=== PATIENT | male | born 1940 | race Caucasian/White ===

== ENCOUNTER 2016-09-04 12:08 | Emergency (ER) | payer MEDICARE ==
[~2016-09-04] VITALS: Ht 175.3 cm; Wt 100.9 kg
[2016-09-04 12:13] VITALS: TEMP 98
[2016-09-04 12:46] LABS: PH 5 (5-8); SQUAMOUS EPITHELIAL 0-2 /hpf; URINE APPEARANCE Hazy; URINE BACTERIA None Seen /hpf; URINE BILIRUBIN Negative (NEGATIVE); URINE BLOOD 1+ (NEGATIVE); URINE COLOR Yellow; URINE GLUCOSE Negative (NEGATIVE); URINE KETONE Negative (NEGATIVE); URINE RBC 0-2 /hpf; URINE UROBILINOGEN Negative (NEGATIVE)
[2016-09-04 12:56] LABS: BASO # 0.1 (0.0-0.2); BASO % 0.5 % (0.0-2.0); EOS # 0.1 (0.0-0.7); EOS % 0.8 % (0-4.0); GRAN # 9.6 (1.4-6.5); GRAN % 73.4 % (42.2-75.2); HEMATOCRIT 36.6 % (42.0-52.0); HEMOGLOBIN 11.9 g/dl (13.5-18.0); LYMPH # 2.1 (1.2-3.4); LYMPH % 15.8 % (20.0-51.0); MEAN CELL VOLUME 88 fl (80.0-100.0); MEAN CORPUSCULAR HEMOGLOBIN 29 pg (27.0-31.0); MEAN CORPUSCULAR HGB CONC 33 g/dl (33.0-37.0); MEAN PLATELET VOLUME 9.2 fl (7.4-10.4); MONO # 1.2 (0.1-0.6); MONO % 8.9 % (1.7-9.3); PLATELET COUNT 158 K/mm3 (130-400); RED BLOOD COUNT 4.16 M/mm3 (4.20-5.60); REDCELL DISTRIBUTION WIDTH-CV 14.4 % (11.5-14.5); WHITE BLOOD COUNT 13.1 K/mm3 (4.8-10.8)
[2016-09-04 13:08] LABS: ADJUSTED CALCIUM 8.9 mg/dL (8.4-10.2); ALANINE AMINOTRANSFERASE 27 U/L (21-72); ALBUMIN 4.3 gm/dL (3.5-5.0); ALKALINE PHOSPHATASE 55 U/L (50-136); ANION GAP 12 mmol/L (7-16); BILIRUBIN,TOTAL 1.3 mg/dL (0.0-1.0); BLOOD UREA NITROGEN 23 mg/dL (9-20); C-REACTIVE PROTEIN 7.1 mg/dL (0.0-0.9); CALCIUM 9.1 mg/dL (8.4-10.2); CARBON DIOXIDE 22 mmol/L (22-30); CHLORIDE 104 mmol/L (98-107); CREATININE, serum 1.75 mg/dL (0.66-1.25); GLUCOSE 126 mg/dL (74-106); LIPASE 80 U/L (23-300); POTASSIUM 4.2 mmol/L (3.4-5.0); SODIUM 138 mmol/L (137-145); TOTAL PROTEIN 8.2 gm/dL (6.4-8.2)
[2016-09-04 13:18] LABS: TROPONIN-I < 0.012 ng/mL (0.000-0.034)
[2016-09-04] MEDS ORDERED: OMNICEF 300MG300 MG PO (14:50)
[2016-09-04] MEDS ORDERED: NORCO 325 MG-51 TAB PO (14:50)
[2016-09-04 14:54] VITALS: BP 116/88; PULSE 82
== END 2016-09-04 15:05 | disposition home or self-care (01) ==
LOC: COL.ER 12:08
PROVIDERS: Emergency Medicine
DX: N39.0 Urinary tract infection, site not specified (principal); N19 Unspecified kidney failure; I25.10 Atherosclerotic heart disease of native coronary artery without angina pectoris; Z86.73 Personal history of transient ischemic attack (TIA), and cerebral infarction without residual deficits; Z86.718 Personal history of other venous thrombosis and embolism
CPT/HCPCS: J0696; J1170; J2405; J7030

== ENCOUNTER 2016-09-06 16:53 | Emergency (ER) | payer MEDICARE ==
[~2016-09-06] VITALS: Ht 175.3 cm; Wt 100.0 kg
[~2016-09-06 16:53] MED LIST: NORCO 325 MG-51 TAB PO; OMNICEF 300MG300 MG PO
[2016-09-06 16:55] VITALS: TEMP 98.9
[2016-09-06 17:33] LABS: BASO % 0.3 % (0.0-2.0); EOS # 0.1 (0.0-0.7); EOS % 1.1 % (0-4.0); GRAN # 8.8 (1.4-6.5); GRAN % 74.6 % (42.2-75.2); HEMATOCRIT 32.2 % (42.0-52.0); HEMOGLOBIN 10.8 g/dl (13.5-18.0); LYMPH # 1.6 (1.2-3.4); LYMPH % 13.6 % (20.0-51.0); MEAN CELL VOLUME 87 fl (80.0-100.0); MEAN CORPUSCULAR HEMOGLOBIN 29 pg (27.0-31.0); MEAN CORPUSCULAR HGB CONC 34 g/dl (33.0-37.0); MEAN PLATELET VOLUME 9.2 fl (7.4-10.4); MONO # 1.2 (0.1-0.6); MONO % 9.8 % (1.7-9.3); PLATELET COUNT 137 K/mm3 (130-400); RED BLOOD COUNT 3.69 M/mm3 (4.20-5.60); REDCELL DISTRIBUTION WIDTH-CV 14.3 % (11.5-14.5); WHITE BLOOD COUNT 11.8 K/mm3 (4.8-10.8)
[2016-09-06 17:43] LABS: ADJUSTED CALCIUM 8.9 mg/dL (8.4-10.2); ALBUMIN 3.9 gm/dL (3.5-5.0); BILIRUBIN,TOTAL 0.9 mg/dL (0.0-1.0); CALCIUM 8.8 mg/dL (8.4-10.2); CREATININE, serum 2.01 mg/dL (0.66-1.25); POTASSIUM 3.9 mmol/L (3.4-5.0); TOTAL PROTEIN 7.6 gm/dL (6.4-8.2)
[2016-09-06 17:56] LABS: C-REACTIVE PROTEIN 15.7 mg/dL (0.0-0.9)
[2016-09-06 17:57] LABS: ERYTHROCYTE SEDIMENTATION RATE 51 mm/hr (0-30)
[2016-09-06 18:06] LABS: PH 5 (5-8); SQUAMOUS EPITHELIAL 0-2 /hpf; URINE APPEARANCE Hazy; URINE BACTERIA None Seen /hpf; URINE BILIRUBIN Negative (NEGATIVE); URINE BLOOD 1+ (NEGATIVE); URINE COLOR Yellow; URINE GLUCOSE 1+ (NEGATIVE); URINE KETONE Trace (NEGATIVE); URINE RBC 0-2 /hpf; URINE UROBILINOGEN Negative (NEGATIVE)
[2016-09-06] MEDS ORDERED: ULTRAM 50MG TAB50 MG PO (19:20)
[2016-09-06] MEDS ORDERED: PERCOCET 325 MG1 TA2 PO (19:20)
[2016-09-06 19:34] VITALS: BP 123/83; PULSE 80
== END 2016-09-06 19:45 | disposition home or self-care (01) ==
LOC: COL.ER 16:53
PROVIDERS: Emergency Medicine
DX: M54.5 Low back pain (principal); N39.0 Urinary tract infection, site not specified; I25.10 Atherosclerotic heart disease of native coronary artery without angina pectoris; Z86.73 Personal history of transient ischemic attack (TIA), and cerebral infarction without residual deficits; Z86.718 Personal history of other venous thrombosis and embolism; H54.41 Blindness, right eye, normal vision left eye; N50.89 Other specified disorders of the male genital organs
CPT/HCPCS: J1170; J1885; J2405; J7030

== ENCOUNTER 2016-09-11 14:06 | Emergency (ER) | payer MEDICARE ==
[~2016-09-11] VITALS: Ht 175.3 cm; Wt 100.0 kg
[~2016-09-11 14:06] MED LIST changes: +PERCOCET 325 MG1 TA2 PO; +ULTRAM 50MG TAB50 MG PO
[2016-09-11 14:09] VITALS: TEMP 97.9
[2016-09-11 15:50] LABS: BASO # 0.1 (0.0-0.2); BASO % 0.6 % (0.0-2.0); EOS # 0.3 (0.0-0.7); EOS % 2.1 % (0-4.0); GRAN # 9.6 (1.4-6.5); GRAN % 79.2 % (42.2-75.2); LYMPH % 8.6 % (20.0-51.0); MEAN CELL VOLUME 87 fl (80.0-100.0); MEAN CORPUSCULAR HGB CONC 33 g/dl (33.0-37.0); MEAN PLATELET VOLUME 9.1 fl (7.4-10.4); MONO % 8.1 % (1.7-9.3); PLATELET COUNT 159 K/mm3 (130-400); WHITE BLOOD COUNT 12.2 K/mm3 (4.8-10.8)
[2016-09-11 15:51] LABS: HEMATOCRIT 30.6 % (42.0-52.0); HEMOGLOBIN 10.1 g/dl (13.5-18.0); MEAN CORPUSCULAR HEMOGLOBIN 29 pg (27.0-31.0)
[2016-09-11 15:57] LABS: INR 1.3 (0.8-3.0); PROTHROMBIN TIME 14.5 SECONDS (9.7-12.8)
[2016-09-11 16:00] LABS: PARTIAL THROMBOPLASTIN TIME 26.3 SECONDS (26.0-37.0)
[2016-09-11 16:02] LABS: ADJUSTED CALCIUM 9.2 mg/dL (8.4-10.2); ALBUMIN 3.6 gm/dL (3.5-5.0); BILIRUBIN,TOTAL 0.9 mg/dL (0.0-1.0); CALCIUM 8.9 mg/dL (8.4-10.2); CREATININE, serum 1.34 mg/dL (0.66-1.25); TOTAL PROTEIN 7.4 gm/dL (6.4-8.2)
[2016-09-11 16:13] LABS: PH 5 (5-8); SQUAMOUS EPITHELIAL 0-2 /hpf; URINE APPEARANCE Clear; URINE BACTERIA None Seen /hpf; URINE BILIRUBIN Negative (NEGATIVE); URINE BLOOD Negative (NEGATIVE); URINE COLOR Yellow; URINE GLUCOSE Negative (NEGATIVE); URINE KETONE Trace (NEGATIVE); URINE RBC 0-2 /hpf; URINE UROBILINOGEN Negative (NEGATIVE); URINE WBC None Seen /hpf
[2016-09-11 16:45] LABS: C-REACTIVE PROTEIN 18.3 mg/dL (0.0-0.9)
[2016-09-11] MEDS ORDERED: XARELTO15 MG PO (17:46)
[2016-09-11] MEDS ORDERED: PERCOCET 325 MG1 TA2 PO (17:46)
[2016-09-11 18:29] VITALS: BP 113/73; PULSE 85
== END 2016-09-11 18:41 | disposition home or self-care (01) ==
LOC: COL.ER 14:06
PROVIDERS: Emergency Medicine
DX: I82.5Z3 Chronic embolism and thrombosis of unspecified deep veins of distal lower extremity, bilateral (principal); Z79.01 Long term (current) use of anticoagulants; I25.10 Atherosclerotic heart disease of native coronary artery without angina pectoris; Z86.73 Personal history of transient ischemic attack (TIA), and cerebral infarction without residual deficits
CPT/HCPCS: J1170; J2405

== ENCOUNTER → 2017-06-27 | Outpatient (CLI) | payer MEDICARE ==
[~2017-06-27] MED LIST changes: +XARELTO15 MG PO
[2017-06-27 13:03] LABS: ARTERIAL BLD GAS O2 SATURATION 96.1 % (92-100); ARTERIAL BLD GAS TCO2 CT 24.7; ARTERIAL BLOOD GAS BASE EXCESS -0.2 (-2-2); ARTERIAL BLOOD GAS HCO3 23.6 meq/L (22-26); ARTERIAL BLOOD GAS PO2 84.2 mmHg (80-100); ARTERIAL BLOOD GAS pH 7.43 (7.35-7.45)
== END ==
LOC: COL.VAS 11:47
PROVIDERS: Emergency Medicine
DX: I35.1 Nonrheumatic aortic (valve) insufficiency (principal); I72.8 Aneurysm of other specified arteries; I25.10 Atherosclerotic heart disease of native coronary artery without angina pectoris

== ENCOUNTER → 2017-07-28 | Outpatient (CLI) | payer MEDICARE | LOC: COL.VAS 13:37 | DX: I08.2 Rheumatic disorders of both aortic and tricuspid valves (principal); I25.2 Old myocardial infarction; I25.10 Atherosclerotic heart disease of native coronary artery without angina pectoris ==

== ENCOUNTER 2018-11-26 08:06 | Observation (INO) | payer MEDICARE ==
[~2018-11-26] VITALS: Ht 177.8 cm; Wt 99.6 kg
[2018-11-26 09:03] LABS: BASO # 0.1 (0.0-0.2); BASO % 0.6 % (0.0-2.0); EOS # 0.1 (0.0-0.7); EOS % 0.8 % (0-4.0); GRAN % 68.8 % (42.2-75.2); HEMATOCRIT 44.4 % (42.0-52.0); HEMOGLOBIN 14.8 g/dl (13.5-18.0); LYMPH # 2.1 (1.2-3.4); LYMPH % 23.8 % (20.0-51.0); MEAN CELL VOLUME 88 fl (80.0-100.0); MEAN CORPUSCULAR HEMOGLOBIN 29 pg (27.0-31.0); MEAN CORPUSCULAR HGB CONC 33 g/dl (33.0-37.0); MEAN PLATELET VOLUME 9.2 fl (7.4-10.4); MONO # 0.5 (0.1-0.6); MONO % 5.5 % (1.7-9.3); PLATELET COUNT 239 K/mm3 (130-400); RED BLOOD COUNT 5.03 M/mm3 (4.20-5.60); REDCELL DISTRIBUTION WIDTH-CV 14.6 % (11.5-14.5)
[2018-11-26 09:14] LABS: ALANINE AMINOTRANSFERASE 10 U/L (21-72); ALBUMIN 4.8 gm/dL (3.5-5.0); ALKALINE PHOSPHATASE 55 U/L (50-136); ANION GAP 14 mmol/L (7-16); AST,SGOT 26 U/L (15-37); BILIRUBIN,TOTAL 0.6 mg/dL (0.0-1.0); BLOOD UREA NITROGEN 20 mg/dL (9-20); CARBON DIOXIDE 22 mmol/L (22-30); CHLORIDE 107 mmol/L (98-107); GLUCOSE 130 mg/dL (74-106); LIPASE 122 U/L (23-300); SODIUM 143 mmol/L (137-145)
[2018-11-26 09:19] LABS: C-REACTIVE PROTEIN < 0.5 mg/dL (0.0-0.9)
[2018-11-26 09:24] LABS: TROPONIN-I < 0.012 ng/mL (0.000-0.035)
[2018-11-26 09:42] LABS: PROTHROMBIN TIME 11.6 SECONDS (9.7-12.8)
[2018-11-26 09:44] LABS: PARTIAL THROMBOPLASTIN TIME 33.7 SECONDS (26.0-37.0)
[2018-11-26 11:55] LABS: ACETAMINOPHEN < 10 ug/mL (10-30); ALCOHOL(ethanol),MEDICAL < 10 mg/dL; SALICYLATE < 1.0 mg/dL
[2018-11-26 12:22] LABS: COLLECTION METHOD CLEAN CATCH
[2018-11-26 12:30] LABS: MUCOUS Present /lpf; PH 6 (5-8); SQUAMOUS EPITHELIAL 0-2 /hpf; URINE APPEARANCE Clear; URINE BACTERIA None Seen /hpf; URINE BILIRUBIN Negative (NEGATIVE); URINE BLOOD Negative (NEGATIVE); URINE COLOR Yellow; URINE GLUCOSE Negative (NEGATIVE); URINE KETONE Negative (NEGATIVE); URINE LEUKOCYTE ESTERASE Negative (NEGATIVE); URINE NITRATE Negative (NEGATIVE); URINE PROTEIN(semi-quant) 1+ (NEGATIVE); URINE RBC 0-2 /hpf; URINE UROBILINOGEN Negative (NEGATIVE)
[2018-11-26 12:59] LABS: TRICYCLIC ANTIDEPRESS URINE NEGATIVE
--- NOTE | 2018-11-26 16:40 | NUR ---
PATIENT ADMITED INTO ROOM 313 FROM ER WITH VERTIGO. PATIENT DENIES C/O DIZZINESS AT THIS TIME. PATIENT DID ANSWER YES TO SOME OF THE SUICIDE ADMISSION QUESTIONS IN ER. NAT EVALUATED PATIENT AND CLEARED HIM. PATIENT IS NON-COMPLIENT WITH PCP. NO CURRENT MEDICATIONS. PATIENT REPORTS HIS PAST MEDICAL HX HOWEVER, THIS HAS NOT BEEN CONFIRMED. PATIENT SEEMS TO EXAGGERATE MOST TOPICS INCLUDING HIS HEALTH HX. HEAD TO TOE ASSESSMENT WNL. LEFT AC IV INFUSING NS AT 125CC PER ORDERS. HEAD TO TOE ASSESSMENT COMPLETE.
[2018-11-26 17:13] VITALS: BP 160/80; PULSE 60; TEMP 97.5
[2018-11-26 18:55] VITALS: BP 163/97; PULSE 61; TEMP 98.2
[2018-11-26 23:14] VITALS: BP 126/71; PULSE 68; TEMP 97.8
[2018-11-27 04:01] VITALS: BP 139/80; PULSE 62; TEMP 98.2
--- NOTE | 2018-11-27 04:03 | NUR ---
Resting quietly on back. IV of NS infusing in L AC at 125mL/hr. Call light within reach. Pt remains NPO since midnight for test this AM. Denies any needs at the present.
--- NOTE | 2018-11-27 06:01 | NUR ---
Pt awakened by nurse from MRI to get questionaire completed. Denies any c/o at this time. Call light within reach.
[2018-11-27 07:20] VITALS: BP 140/90; PULSE 64; TEMP 98.4
--- NOTE | 2018-11-27 07:24 | NUR ---
End of shift report given to JOANIE Greenwood.
[2018-11-27 07:55] LABS: BASO # 0.1 (0.0-0.2); BASO % 0.7 % (0.0-2.0); EOS # 0.1 (0.0-0.7); EOS % 1.8 % (0-4.0); GRAN # 4.3 (1.4-6.5); GRAN % 58.3 % (42.2-75.2); LYMPH # 2.2 (1.2-3.4); LYMPH % 30.1 % (20.0-51.0); MEAN CELL VOLUME 91 fl (80.0-100.0); MEAN CORPUSCULAR HEMOGLOBIN 29 pg (27.0-31.0); MEAN CORPUSCULAR HGB CONC 32 g/dl (33.0-37.0); MEAN PLATELET VOLUME 9.3 fl (7.4-10.4); MONO # 0.7 (0.1-0.6); MONO % 8.8 % (1.7-9.3); PLATELET COUNT 195 K/mm3 (130-400); RED BLOOD COUNT 4.28 M/mm3 (4.20-5.60)
[2018-11-27 08:00] VITALS: BP 140/90; PULSE 64; TEMP 98.4
[2018-11-27 08:13] LABS: ALANINE AMINOTRANSFERASE 10 U/L (21-72); ALBUMIN 3.8 gm/dL (3.5-5.0); ALKALINE PHOSPHATASE 38 U/L (50-136); ANION GAP 8 mmol/L (7-16); AST,SGOT 24 U/L (15-37); BILIRUBIN,TOTAL 0.5 mg/dL (0.0-1.0); BLOOD UREA NITROGEN 15 mg/dL (9-20); CALCIUM 8.4 mg/dL (8.4-10.2); CARBON DIOXIDE 25 mmol/L (22-30); CHLORIDE 109 mmol/L (98-107); CREATININE, serum 1.33 (0.66-1.25); GLUCOSE 79 mg/dL (74-106); PHOSPHOROUS 3.5 mg/dL (2.5-4.5); POTASSIUM 4.1 mmol/L (3.4-5.0); SODIUM 141 mmol/L (137-145); TOTAL PROTEIN 6.9 gm/dL (6.4-8.2)
[2018-11-27 08:14] LABS: HEMOGLOBIN 12.6 g/dl (13.5-18.0)
[2018-11-27 08:22] LABS: TROPONIN-I < 0.012 ng/mL (0.000-0.035)
[2018-11-27 08:24] VITALS: BP 140/90; PULSE 64; TEMP 98.4
[2018-11-27 11:19] VITALS: BP 145/93; PULSE 73; TEMP 97.8
--- NOTE | 2018-11-27 11:51 | NUR ---
Initial visit; Patient likes to talk and welcomed Briquetting Machine Operator as a listener. Briquetting Machine Operator wished him well and God's blessings when his Physician arrived.
[2018-11-27] MEDS ORDERED: ASPI325T6 PO (13:58)
[2018-11-27] MEDS ORDERED: ANTIVERT 12.512.5 MG PO (13:58)
[2018-11-27 14:02] LABS: CHOLESTEROL RISK RATIO 13.7
[2018-11-27] MEDS ORDERED: LIPITOR20 MG PO (14:06)
--- NOTE | 2018-11-27 14:47 | NUR ---
MARYELLEN met with the patient to discuss discharge plan. The patient lives in House with his , (Sophia ph#[phone]), son (Owen ph#[phone]), [id number], and two grandchildren. He reports independence with ADLs and does not have any DME. The patient has not followed up with a PCP in many years. Ella, nurse practitioner, inquired that the patient had been established with Dr. Fredis Ang. The patient is agreeable to follow up with Dr. Ang. The patient receives his medications at the [facility]. He reports difficulties obtaining his meds and states that he does have a discount card. SW contacted [facility] and priced his meds. The total was $37.11. The patient reports that he and his are able to afford this. The patient plans to return home with his family. Transportation provided by his son, Owen. No additional needs at this time.
--- NOTE | 2018-11-27 15:12 | NUR ---
Discharge orders discussed with the patient, instructed to follow up with as we have scheduled, discussed new meds Lipitor/Meclizine/ASA, scripts sent to [facility] pharmacy, IV and tele removed, patient is leaving with his son, JESUS escorting adam out the door when his ride arrives
== END 2018-11-27 15:21 | disposition home or self-care (01) ==
LOC: COL.ER 08:06 → MEDICAL 12:51
PROVIDERS: Emergency Medicine; Nurse Practitioner Family; ADMIT Family Medicine
DX: R42 Dizziness and giddiness (principal); I25.10 Atherosclerotic heart disease of native coronary artery without angina pectoris; I25.2 Old myocardial infarction; E86.0 Dehydration; R51 Headache; I10 Essential (primary) hypertension; I08.0 Rheumatic disorders of both mitral and aortic valves; Z86.73 Personal history of transient ischemic attack (TIA), and cerebral infarction without residual deficits; N40.0 Benign prostatic hyperplasia without lower urinary tract symptoms; Z86.718 Personal history of other venous thrombosis and embolism; F32.9 Major depressive disorder, single episode, unspecified; H54.7 Unspecified visual loss; F17.210 Nicotine dependence, cigarettes, uncomplicated; Z85.820 Personal history of malignant melanoma of skin; Z88.0 Allergy status to penicillin
CPT/HCPCS: 99222-AI; A9585; G0378; J2405; J3360; J7030

== ENCOUNTER 2022-11-26 18:30 | Observation (INO) | payer MEDICARE, MEDICAID ==
[~2022-11-26] VITALS: Ht 177.8 cm; Wt 94.7 kg
[~2022-11-26 18:30] MED LIST changes: +ANTIVERT 12.512.5 MG PO; +ASPI325T6 PO; +LIPITOR20 MG PO
[2022-11-26 18:48] LABS: BASO # 0.1 K/mm3 (0.0-0.2); BASO % 0.6 % (0.0-2.0); EOS # 0.1 K/mm3 (0.0-0.7); EOS % 1.4 % (0.0-4.0); GRAN # 5.8 K/mm3 (1.4-6.5); GRAN % 59.2 % (42.2-75.2); HEMATOCRIT 41.4 % (42.0-52.0); HEMOGLOBIN 13.3 g/dl (13.5-18.0); LYMPH % 30.5 % (20.0-51.0); MEAN CELL VOLUME 86 fl (80.0-100.0); MEAN CORPUSCULAR HEMOGLOBIN 28 pg (27-31); MEAN CORPUSCULAR HGB CONC 32 g/dl (33.0-37.0); MEAN PLATELET VOLUME 8.8 fl (7.4-10.4); MONO # 0.8 K/mm3 (0.1-0.6); MONO % 7.9 % (1.7-9.3); PLATELET COUNT 281 K/mm3 (130-400); RED BLOOD COUNT 4.82 M/mm3 (4.20-5.60); REDCELL DISTRIBUTION WIDTH-CV 15.6 % (11.5-14.5)
[2022-11-26 18:54] LABS: INR 1.1 (0.8-3.0)
[2022-11-26 19:03] LABS: ALANINE AMINOTRANSFERASE 11 U/L (0-55); ALBUMIN 4.1 gm/dL (3.4-4.8); ALKALINE PHOSPHATASE 51 U/L (40-150); ANION GAP 15 mmol/L (7-16); AST,SGOT 14 U/L (5-34); BILIRUBIN,TOTAL 0.4 mg/dL (0.2-1.2); BLOOD UREA NITROGEN 25 mg/dL (8-26); CALCIUM 10.2 mg/dL (8.4-10.2); CARBON DIOXIDE 21 mmol/L (23-31); CHLORIDE 104 mmol/L (98-107); CREATININE, serum 1.74 mg/dL (0.72-1.25); GLUCOSE 117 mg/dL (70-99); POTASSIUM 4.2 mmol/L (3.5-4.5); SODIUM 140 mmol/L (136-145); TOTAL PROTEIN 8.6 gm/dL (6.2-8.1)
[2022-11-26 19:11] LABS: TROPONIN-I < 0.010 ng/mL (0.00-0.033)
[2022-11-26 20:35] LABS: COLLECTION METHOD CLEAN CATCH
[2022-11-26 20:42] LABS: URINE APPEARANCE Clear (CLEAR/HAZY); URINE COLOR Yellow (YELLOW)
[2022-11-26 20:43] LABS: URINE BLOOD Negative (NEGATIVE); URINE GLUCOSE Negative (NEGATIVE); URINE KETONE TRACE (NEGATIVE); URINE NITRATE Negative (NEGATIVE); URINE PROTEIN(semi-quant) 2+ (NEGATIVE); URINE UROBILINOGEN 0.2 E.U/dL (0.2-1.0)
[2022-11-26 21:19] LABS: MUCOUS Present (NOT PRESENT); URINE BACTERIA Rare /hpf (NONE SEEN)
[2022-11-26] MEDS ORDERED: PLAVIX 75MG TAB75 MG PO (22:47)
[2022-11-26] MEDS ORDERED: KAPSPARGO SPRIN25 MG PO (22:48)
[2022-11-26] MEDS ORDERED: NORCO 325 MG-51 TAB PO (22:48)
[2022-11-26] MEDS ORDERED: MIRALAX PA17 GM/Dose PO (22:55)
[2022-11-26] MEDS ORDERED: EZALLOR SPRINKL20 MG PO (22:55)
[2022-11-26 23:30] VITALS: BP 140/70; PULSE 61; TEMP 97.8
--- NOTE | 2022-11-26 23:35 | NUR ---
THE PATIENT ARRIVED VIA BED ACCOMPANIED BY ED STAFF. THE PATIENT WAS ALERT AND ORIENTED. THE PATIENT WAS ORIENTED TO THE ROOM AND BED CONTROLS. CALL LIGHT WITHIN REACH.
[2022-11-27] VITALS (7 sets, daily range): BP systolic 140–147; BP diastolic 89–102; PULSE 66–75; TEMP 97.6–98.4
--- NOTE | 2022-11-27 02:21 | NUR ---
RECEIVED HANDOFF REPORT FROM JOANIE OTOOLE. PATIENT HAS FLUIDS GOING TO A LEFT ANTECUBITAL SITE. NO OTHER ACCESS. VITAL SIGNS ARE STABLE AND PATIENT IS ALERT AND ORIENTED. PATIENT IS A STANDBY ASSIST TO THE BATHROOM. VOIDS AND BOWEL MOVEMENTS WITHOUT DIFFICULTY. NO OTHER COMPAINTS AT THIS TIME. HAD RECEIVED TYLENOL FOR HEADACHE RECENTLY. HAS A SIGNIFICANT AMOUNT OF RAISED MOLES ON HIS BACK AND NECK. NO OTHER SKIN ISSUES. CALL LIGHT WITHIN REACH.
[2022-11-27 07:00] LABS: THYROID STIMULATING HORMONE 1.203 uIU/mL (0.350-4.940); TROPONIN-I 6 HR POST INITIAL < 0.010 ng/mL (0.00-0.033)
--- NOTE | 2022-11-27 07:30 | NUR ---
PATIENT AWAKE AND ALERT, RESTING IN BED. PATIENT DENIES ANY NEEDS OR COMPLAINTS AT THIS TIME. PATIENT STATED HE IS READY TO GO HOME. FALL PRECAUTIONS IN PLACE. CALL LIGHT WITHIN REACH.
--- NOTE | 2022-11-27 10:05 | NUR ---
RN ACKNOWLEDGED CARDIOLOGY CONSULT. HOWEVER THERE IS NO CARDIOLOGY THIS WEEKEND, THIS RN INFORMED HOSPITALIST DR ARIZMENDI
--- NOTE | 2022-11-27 11:26 | NUR ---
PATINET AWAKE AND ALERT, RESTING IN BED. PATIENT DENIES ANY NEEDS OR COMPLAINTS AT THIS TIME.
--- NOTE | 2022-11-27 11:53 | NUR ---
SW met with patient to complete intake. Patient provides that he lives in [facility] alone, and rarely utilizes a walker. Patient provides he is independent with ADL's, and does not utilize home health services. PCP is at [facility], and pharmacy is [facility]. Patient does not have anyone appointment as DPOA/HC next of kin is son Owen Ashton [phone]. Patient states that his plan is to return to his home upon DC. SW will continue to follow. Dc plan: home
[2022-11-27 14:18] LABS: CALCIUM 8.8 mg/dL (8.4-10.2); CREATININE, serum 1.38 mg/dL (0.72-1.25); POTASSIUM 4.5 mmol/L (3.5-4.5)
--- NOTE | 2022-11-27 15:00 | NUR ---
PATIENT GIVEN DISCHARGE INSTRUCTIONS AND EDUCATION. PATIENTS RABIA MULLER AT BEDSIDE AT THIS TIME. PATIENTS IV AND TELE REMOVED. PATIENT TAKEN TO ER ENTRANCE VIA WHEELCHAIR BY PCT WHERE HE LEFT IN STABLE CONDITION.
== END 2022-11-27 15:00 | disposition home or self-care (01) ==
LOC: COL.ER 18:30 → MEDICAL 21:51
PROVIDERS: Internal Medicine; Nurse Practitioner; Physician Assistant; ADMIT Internal Medicine
DX: R61 Generalized hyperhidrosis (principal); R53.1 Weakness; E86.0 Dehydration; I25.10 Atherosclerotic heart disease of native coronary artery without angina pectoris; R41.82 Altered mental status, unspecified; Z95.5 Presence of coronary angioplasty implant and graft; Z87.891 Personal history of nicotine dependence
CPT/HCPCS: G0378; J7120; Q9967

== ENCOUNTER 2023-03-11 15:30 | Emergency (ER) | payer MEDICARE, MEDICAID ==
[~2023-03-11] VITALS: Ht 175.3 cm; Wt 93.2 kg
[~2023-03-11 15:30] MED LIST changes: +EZALLOR SPRINKL20 MG PO; +KAPSPARGO SPRIN25 MG PO; +MIRALAX PA17 GM/Dose PO; +PLAVIX 75MG TAB75 MG PO
[2023-03-11 16:13] LABS: BASO % 0.6 % (0.0-2.0); EOS # 0.2 K/mm3 (0.0-0.7); EOS % 2.4 % (0.0-4.0); GRAN # 4.3 K/mm3 (1.4-6.5); GRAN % 60.6 % (42.2-75.2); HEMATOCRIT 42.2 % (42.0-52.0); HEMOGLOBIN 14.2 g/dl (13.5-18.0); LYMPH % 27.6 % (20.0-51.0); MEAN CELL VOLUME 87 fl (80.0-100.0); MEAN CORPUSCULAR HEMOGLOBIN 29 pg (27-31); MEAN CORPUSCULAR HGB CONC 34 g/dl (33.0-37.0); MONO # 0.6 K/mm3 (0.1-0.6); MONO % 8.5 % (1.7-9.3); PLATELET COUNT 220 K/mm3 (130-400); RED BLOOD COUNT 4.85 M/mm3 (4.20-5.60); REDCELL DISTRIBUTION WIDTH-CV 15.1 % (11.5-14.5)
[2023-03-11] MEDS ORDERED: NS 500 ML IV ONE (16:15)
[2023-03-11 16:36] LABS: BILIRUBIN,TOTAL 0.5 mg/dL (0.2-1.2); C-REACTIVE PROTEIN 0.21 mg/dL (0.00-0.50); CALCIUM 9.6 mg/dL (8.4-10.2); CREATININE, serum 1.74 mg/dL (0.72-1.25); POTASSIUM 4.3 mmol/L (3.5-4.5); TOTAL PROTEIN 8.4 gm/dL (6.2-8.1)
[2023-03-11 17:14] LABS: COLLECTION METHOD CLEAN CATCH
[2023-03-11 17:30] LABS: MUCOUS Present (NOT PRESENT); PH 5.5 (5.0-8.5); SQUAMOUS EPITHELIAL 0-2 /hpf (0-10); URINE APPEARANCE Cloudy (CLEAR/HAZY); URINE BLOOD Negative (NEGATIVE); URINE COLOR YELLOW (YELLOW); URINE GLUCOSE Negative (NEGATIVE); URINE KETONE 1+ (NEGATIVE); URINE NITRATE Negative (NEGATIVE); URINE PROTEIN(semi-quant) 2+ (BEGATIVE); URINE UROBILINOGEN 0.2 E.U/dL (0.2-1.0)
[2023-03-11 18:32] VITALS: BP 139/96; PULSE 69; TEMP 97.7
== END 2023-03-11 18:32 | disposition home or self-care (01) ==
LOC: COL.ER 15:30
PROVIDERS: Emergency Medicine
DX: K80.20 Calculus of gallbladder without cholecystitis without obstruction (principal); I77.810 Thoracic aortic ectasia; I11.9 Hypertensive heart disease without heart failure; I25.2 Old myocardial infarction; K59.00 Constipation, unspecified; G89.29 Other chronic pain; M54.9 Dorsalgia, unspecified; Z79.02 Long term (current) use of antithrombotics/antiplatelets; Z79.899 Other long term (current) drug therapy
CPT/HCPCS: J7040